=== PATIENT | female | born 1980 | race Hispanic/Latino ===

== ENCOUNTER → 2018-04-18 | Day surgery (SDC) | payer OTHER ==
[~2018-04-18] MED LIST: Bupivacaine HCl 0.5%/Epinephrine 1:200,000/PF 30 ml Vial ONE; Dexamethasone 20 MG/5 ML VIAL ONE; Fentanyl 250 MCG/5 ML VIAL ONE; Glycopyrrolate 0.2 MG/ML 5 ML SYRINGE ONE; HYDROcodone/Acetaminophen 5/325 mg Tablet ONE; Ondansetron PF 4 MG/2 ML Vial ONE; PROPOFOL 200 MG/20 ML VIAL ONE
--- NOTE | 2018-04-18 13:19 | HP ---
HISTORY OF PRESENT ILLNESS: Linda Carney is a 37-year-old female who presented to [place] with a slightly less than 24-hour history of right lower quadrant pain associated with anorexia, nausea, in creased pain with movement. She did have some vomiting. She has not had a fever. She had a CAT sca n in [facility] revealing changes consistent with appendicitis. She had an elevated white count a nd negative test. Basic metabolic profile was normal. ALLERGIES: None. TOBACCO: None. ALCOHOL: None. PAST SURGICAL HISTORY: Tubal ligation. PAST MEDICAL HISTORY: Noncontributory. SOCIAL HISTORY: She is here with her daughters and . She is a construction secretary. REVIEW OF SYSTEMS: [place] noncontributory. FAMILY HISTORY: Noncontributory. PHYSICAL EXAMINATION: VITAL SIGNS: Temperature 98.1, 73, 16, 104/70, 100% saturations. HEENT: Unremarkable. LUNGS: Clear to auscultation. CARDIAC: Regular rate and rhythm without murmur or gallop. ABDOMEN: Soft, tenderness in right lower quadrant with guarding, rebound. EXTREMITIES: Unremarkable. ASSESSMENT AND PLAN: Appendicitis. I would recommend laparoscopic video appendectomy. Risk of infe ction, bleeding, visceral injury, open procedure discussed, she consents.
--- NOTE | 2018-04-18 14:20 | OP ---
DATE OF PROCEDURE: 04/18/2018 PREOPERATIVE DIAGNOSIS: Acute appendicitis. POSTOPERATIVE DIAGNOSIS: Acute appendicitis. PROCEDURE: Laparoscopic video appendectomy. SURGEON: Bruno Lopez M.D. ANESTHESIA: General. Local 0.5% Marcaine with epinephrine, 30 mL. PROCEDURE: The patient was taken to the operating room where under general anesthesia, abdomen was c lipped of hair, prepared with ChloraPrep, draped in routine fashion. Lizama catheter placed at the be ginning of the procedure, removed at the end. Local anesthetic 0.5% Marcaine with epinephrine infilt rated skin and subcutaneous tissue about each port site. Infraumbilical incision made and pneumoperi toneum to 15 mmHg obtained with the Veress needle, replacing it with a 5 port. Video laparoscope ins erted. Remainder of the ports placed under laparoscopic visualization. Right lateral subcostal inci tomasa made and a 5 port placed and suprapubic incision made and a 12 port placed. Appendix was acutel y inflamed. Mesoappendix taken down with the LigaSure. The stump of the appendix divided with the E ndo blue load MARY stapler. Stapled cecal stump was hemostatic after application of elizabeth. The pel vis and pericecal area irrigated. Irrigant evacuated. Good hemostasis ensured. Suprapubic fascia a pproximated with 0 Vicryl GraNee needle. Irrigant and pneumoperitoneum evacuated. All instruments r emoved and all skin incisions approximated with interrupted subdermal 4-0 Monocryl and DermaGlue appl ied.
== END ==
LOC: SDC 11:37
PROVIDERS: ATTEND Specialist
PROC: 0DTJ4ZZ Resection of Appendix, Percutaneous Endoscopic Approach (ICD-10-PCS; principal; 2018-04-18)
DX: K35.80 Unspecified acute appendicitis (principal)
CPT/HCPCS: 88304; J0670; J1100; J2405; J2704; J3010